=== PATIENT | male | born 1965 | race Caucasian/White ===

== ENCOUNTER 2017-02-15 15:12 | Emergency (ER) | payer OTHER ==
[2017-02-15 15:43] LABS: Hematocrit 49.7 % (42.0-52.0); Hemoglobin 17.4 gm/dL (13.5-18.0); Mean Cell Volume 86.7 fl (78-100); Mean Corpuscular Hemoglobin 30.4 pg (27-31); Mean Platelet Volume 9.5 fl (6.0-9.5); Neutrophil # 9.8 K/mm3 (1.3-6.0); Neutrophil % 95.2 % (42-75.0); Platelet Count 245 K/mm3 (150-450); Red Blood Count 5.73 M/mm3 (4.7-6.0); Red Cell Distribution Width 12.9 % (11.5-14.0); White Blood Count 10.3 K/mm3 (4.0-10.5)
[2017-02-15 15:59] LABS: ALT 26 U/L (19-67); AST 18 U/L (0-48); Albumin * 3.5 gm/dl (3.4-5.0); Alkaline Phosphatase * 68 U/L (50-170); Anion Gap 19.2 mmol/L (6.8-13.8); BUN/Creatinine Ratio 22.2 (9.0-21.6); Bilirubin, Total 0.4 mg/dL (0.0-1.1); Blood Urea Nitrogen 26 mg/dL (6-23); Ca. Corrected For Albumin 8.8 mg/dL (8.4-10.2); Calcium * 8.7 mg/dL (7.9-10.9); Chloride 103 mmol/L (97-106); Glucose * 137 mg/dL (70-110); Potassium 4.2 mmol/L (3.4-4.6); Sodium 139 mmol/L (132-142); Total Protein 7.2 gm/dL (6.2-8.2); Troponin I Less than 0.017 ng/ml (0.00-0.10)
[2017-02-15] MEDS ORDERED: IBUPROFEN 400 MG TABLET PO ONE (16:42)
[2017-02-15] MEDS ORDERED: ALBUTEROL SULFATE 2.5 MG/0.5 ML VIAL.NEB IH ONE ×2 (16:44→16:45)
[2017-02-15] MEDS ORDERED: IBUPROFEN 400 MG TABLET ONE (16:45)
--- NOTE | 2017-02-15 16:53 | ERNOTE ---
Medical Problem HPI - General Chief Complaint: General Assessment Time Seen by Provider: 02/15/17 16:37 Source: patient Exam Limitations: no limitations - Immun/Allergies/Home Medications Immunizations: IMMUNIZATION HX Immunizations Up to Date Yes History of Influenza Vaccine No Allergies/Adverse Reactions: Allergies No Known Allergies Allergy (Unverified 02/15/17 15:26) Home Medications: HOME MEDICATIONS Albuterol Sulfate [Proair Hfa] 2 puff IH Q4H PRN #1 inhaler 02/15/17 [Last Taken Unknown] Propranolol HCl 60 mg PO DAILY 02/15/17 [Last Taken Unknown] - History of Present History Narrative: Patient had no symptoms when he went to bed last night and woke up this morning with generalized body aches. He has been nauseated but has been able to keep down water, has not taken any pain medication yet, slight cough, loose BM, no SOB. Two days ago his grandson came down with similar symptoms. Review of Systems - Review of Systems Constitutional: Present: chills, fatigue, malaise. Absent: recent illness ENT: Absent: nose pain, nose congestion Respiratory: Present: cough - slight. Absent: shortness of breath Cardiology: Absent: chest pain Gastrointestinal/Abdominal: Present: nausea. Absent: vomiting, diarrhea, abdominal pain Genitourinary: Present: no symptoms reported Musculoskeletal: Present: See HPI Skin: Absent: rash Neurological: Present: headache - 'hurts from head to toe. Absent: weakness, numbness - Patient's Past Medical History Patient History - Medical: No pertinent hx Patient History - Cardiac/Respiratory: Hypertension, Hyperlipidemia Patient History - Cancer: No Hx of Cancer Patient History - Surgical Procedures: Colonoscopy - Social History Living Situations: home Smoking Status: Current every day smoker Have you smoked in the past 12 months: Yes - Immunizations Immunizations Up to Date: Yes History of Influenza Vaccine: No Physical Exam - Physical Exam General Appearance: Present: wd/wn, alert, mild distress Head Exam: Present: normal inspection, no evidence of injury Eye Exam: Normal inspection: bilateral, PERRL: bilateral Ears, Nose, Throat: Present: nasal congestion, normal pharynx Neck: Present: normal inspection, nontender, supple Respiratory: Present: no respiratory distress, no accessory muscle use, expiration (prolonged), wheezing. Absent: respiratory distress Cardiovascular/Chest: Present: regular rate, rhythm, no murmur Extremity Exam: Present: no edema Neurological Exam: Present: alert, oriented, normal mood/affect Skin Exam: Present: normal color, warm/dry ED Progress - Results and Orders Patient's Lab Results:: I have reviewed the patient's lab results. - Vital Signs Patient's Vital Signs:: I have reviewed the patient's vital signs. Vital Signs: Vital Signs 02/15/17 02/15/17 02/15/17 15:23 16:06 16:34 Temperature 36.2 C L Pulse Rate 135 H 124 H 114 H Respiratory 14 16 18 Rate Blood Pressure 110/69 116/80 131/90 O2 Sat by Pulse 96 96 95 Oximetry - X-Ray X-Ray #1 X-Ray: chest - no acute changes Interpretation: Interp. by me - Progress/Reassessment Chief Complaint: General Assessment Progress Note-Subjective: 02/15/17 17:29 discussed test results, patient feeling better after neb treatment, lungs clear , wheezing has resolved Departure Clinical Impression: Flu-like symptoms - Departure Disposition: Home self-care Condition: Good Instructions: Acute Bronchitis, [id number], Form - Excuse from Work, School, or Physical Activity Additional Instructions: take ibuprofen as needed for aches use the inhaler as needed follow up with your doctor or return to the ER for any worsening or new symptoms Referrals: Rose Deluca, MARSHALL [Primary Care Provider] - Prescriptions: Albuterol Sulfate [Proair Hfa] 2 puff IH Q4H PRN #1 inhaler PRN Reason: Shortness Of Breath
[2017-02-15 17:37] VITALS: BP 142/84
== END 2017-02-15 17:40 | disposition home or self-care (01) ==
LOC: ER 15:12
DX: R68.89 Other general symptoms and signs (principal); F17.200 Nicotine dependence, unspecified, uncomplicated; I10 Essential (primary) hypertension